=== PATIENT | female | born 1995 | race African-American/Black ===

== ENCOUNTER 2017-07-24 11:58 | Emergency (ER) | payer SELFPAY ==
[2017-07-24 12:05] VITALS: BP 140/69; BMI 28.1
[2017-07-24] MEDS ORDERED: TORADOL 60 MG VIAL IM ONE (12:50)
[2017-07-24] MEDS ORDERED: NORFLEX INJ IM ONE (12:51)
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
[2017-07-24] MEDS ORDERED: TORADOL 60 MG VIAL ONE (13:02)
[2017-07-24] MEDS ORDERED: NORFLEX INJ ONE (13:02)
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
== END 2017-07-24 13:54 | disposition home or self-care (01) ==
LOC: MERGE 12:26 → ER 12:26
DX: S80.12XA Contusion of left lower leg, initial encounter (principal); V87.7XXA Person injured in collision between other specified motor vehicles (traffic), initial encounter
CPT/HCPCS: 73552; 73590; 96372; 99282; 99283; J1885; J2360